=== PATIENT | male | born 1990 | race Asian ===

== ENCOUNTER 2016-05-13 06:00 | Day surgery (SDC) | payer OTHER ==
[~2016-05-13] VITALS: Ht 180.3 cm; Wt 65.5 kg
[~2016-05-13 06:00] MED LIST: AZTH250C PO; BENZ100C18 PO; HYDR-1231 PO; IBUP800T26 PO; PRD20T PO; RNT150T PO
[2016-05-13] MEDS ORDERED: LACTATED RINGERS 1,000 ML IV PRN (06:26)
[2016-05-13 06:40] VITALS: BP 112/55
[2016-05-13] MEDS ORDERED: AMPICILL/SULB 1.5 GM VIAL (UNASYN) ONE (06:41)
[2016-05-13] MEDS ORDERED: HYDROCORTISONE 100 MG/2 ML (Solu-CORTEF) VIAL ONE (06:41)
[2016-05-13] MEDS ORDERED: fentaNYL INJECTION 100 MCG/2 ML AMP ONE (06:42)
[2016-05-13] MEDS ORDERED: DEXAMETHASONE PF 10 MG/ML (DECADRON) VIAL ONE (06:42)
[2016-05-13] MEDS ORDERED: NORMAL SALINE (BAXTER MINI) 50 ML IV ONE (06:42)
[2016-05-13] MEDS ORDERED: PHENYLEPHRINE 0.5% NASAL SPR (NEO-SYNEPHRINE) REG ONE (06:42)
[2016-05-13] MEDS ORDERED: LACTATED RINGERS 1,000 ML IV ONE ×2 (06:42→08:17)
[2016-05-13] MEDS ORDERED: LIDOCAINE/EPI 1%-1:100,000 (XYLOCAINE) 20ML ONE (06:42)
[2016-05-13] MEDS ORDERED: COCAINE HCL 4% 2 ML SYR ONE (06:42)
[2016-05-13] MEDS ORDERED: proPOfol 200 MG/20 ML (DIPRIVAN) VIAL IV ONE (06:42)
[2016-05-13] MEDS ORDERED: BSS 15 ML ONE (06:42)
[2016-05-13] MEDS ORDERED: ONDANSETRON 4 MG/2 ML (SDV) Z0FRAN ONE (06:42)
[2016-05-13] MEDS ORDERED: ROCURONIUM 50 MG/5 ML (ZEMURON) VIAL IV ONE (06:42)
[2016-05-13] MEDS ORDERED: MIDAZOLAM 2 MG/2 ML (VERSED) VIAL ONE (06:43)
--- NOTE | 2016-05-13 06:46 | Progress Note-Pre Operative ---
Pre-Operative Progress Note H&P Reviewed The H&P was reviewed, patient examined and no changes noted. 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
[2016-05-13] MEDS ORDERED: AMPICILLIN/SULBACTAM 1.5 GM/NS 50 ML IVPB IV ONE ×2 (07:00)
[2016-05-13] MEDS ORDERED: HYDROCORTISONE 100 MG/2 ML (Solu-CORTEF) VIAL IV ONE (07:00)
[2016-05-13] MEDS ORDERED: SEVOFLURANE (ULTANE) 15 ML INHAL SOLN ONE ×3 (07:46→08:42)
[2016-05-13] MEDS ORDERED: morphine INJ 10 MG/ML 1ML (SYR OR VIAL) ONE (08:41)
[2016-05-13] MEDS ORDERED: D5 1/2 NS W/KCL 20 MEQ/L 1,000 ML IV SCH (08:47)
--- NOTE | 2016-05-13 08:47 | Progress Note-Post Operative ---
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
[2016-05-13] MEDS ORDERED: HYDROcodone/APAP 5 MG/325 MG (LORTAB) TAB PO PRN (09:00)
[2016-05-13] MEDS ORDERED: ACETAMINOPHEN 325 MG TABLET/CAPLET (TYLENOL) PO PRN (09:00)
[2016-05-13] MEDS ORDERED: predniSONE 20 MG TAB PO SCH (09:00)
[2016-05-13] MEDS ORDERED: PROMETHAZINE INJ 25 MG/ML (PHENERGAN) AMP IVP PRN (09:00)
[2016-05-13 09:50] VITALS: BP 143/91
[2016-05-13] MEDS ORDERED: PRD20T PO (10:03)
[2016-05-13] MEDS ORDERED: HYDR-3812 PO (10:03)
[2016-05-13] MEDS ORDERED: AMOX-355 PO (10:03)
[2016-05-13 10:20] VITALS: BP 142/95
[2016-05-13 10:50] VITALS: BP 125/84
[2016-05-13 13:15] VITALS: BP 125/84
== END 2016-05-13 13:15 | disposition home or self-care (01) ==
LOC: SDC 06:00
PROVIDERS: ATTEND Otolaryngology Otolaryngology/Facial Plastic Surgery
DX: J32.2 Chronic ethmoidal sinusitis (principal); J34.2 Deviated nasal septum; J34.3 Hypertrophy of nasal turbinates